=== PATIENT | female | born 1980 | race Two or more races ===

== ENCOUNTER 2019-07-11 14:20 | Emergency (ER) | payer OTHER ==
[~2019-07-11] VITALS: Ht 162.6 cm; Wt 100.0 kg
[~2019-07-11 14:20] MED LIST: NAPR-682 PO; OXYC15TA PO; OXYC1TAB15 PO; TRAM50TA PO
[2019-07-11] MEDS ORDERED: ONDANSETRON PF 4 MG/2 ML VIAL. IVP ONE (16:00)
[2019-07-11] MEDS ORDERED: fentaNYL PF VIAL 100 MCG/2 ML VIAL IVP ONE (16:00)
[2019-07-11] MEDS ORDERED: IV NORMAL SALINE 1000ML BAG 1,000 ML IV ONE (16:00)
--- NOTE | 2019-07-11 16:02 | PHYS DOC ---
Past Medical History Past Medical History: P.U.D., Other Additional Past Medical Histor: CROHNS,SLIPPED DISC Past Surgical History: Cholecystectomy, Other Additional Past Surgical Histo: liver biopsy Smoking Status: Never Smoker Alcohol Use: Occasionally Drug Use: None Adult General Chief Complaint Chief Complaint: ABDOMINAL PAIN HPI HPI Patient is a 38 year old female with past medical history significant for Crohn's disease but has been off medications for approximately 1 year; presents secondary to abdominal pain 2 days that is sharp and crampy in nature with associated vomiting, nausea, diarrhea. No reported fever or chills. Similar to Crohn's presentation in the past. Has tried Aleve without relief. Pain is Review of Systems Review of Systems All other ROS is negative unless otherwise stated in HPI Current Medications Current Medications Current Medications Medications (Trade) Dose Ordered Sig/Jeff Start Time Stop Time Status Last Admin Dose Admin Fentanyl Citrate (Fentanyl 2ml Vial) 50 mcg 1X ONCE 07/11/19 16:00 07/11/19 16:04 DC 07/11/19 16:26 50 MCG Ondansetron HCl (Zofran) 4 mg 1X ONCE 07/11/19 16:00 07/11/19 16:04 DC 07/11/19 16:24 4 MG Sodium Chloride 1,000 ml @ 1,000 mls/hr 1X ONCE 07/11/19 16:00 07/11/19 16:59 07/11/19 16:22 1,000 MLS/HR Allergies Allergies Allergies Coded Allergies Type Severity Reaction Last Updated Verified No Known Drug Allergies 01/28/16 No Physical Exam Physical Exam See above Constitutional: Well developed, well nourished, no acute distress, non-toxic appearance. [] HENT: Normocephalic, atraumatic, bilateral external ears normal, oropharynx moist, no oral exudates, nose normal. [] Eyes: PERRLA, EOMI, conjunctiva normal, no discharge. [] Neck: Normal range of motion, no tenderness, supple, no stridor. [] Cardiovascular:Heart rate regular rhythm, no murmur [] Lungs & Thorax: Bilateral breath sounds clear to auscultation [] Abdomen: Bowel sounds normal, soft, mild TTP diffusely, no masses, no pulsatile masses. [] Skin: Warm, dry, no erythema, no rash. [] Back: No tenderness, no CVA tenderness. [] Extremities: No tenderness, no cyanosis, no clubbing, ROM intact, no edema. [] Neurologic: Alert and oriented X 3, normal motor function, normal sensory function, no focal deficits noted. [] Psychologic: Affect normal, judgement normal, mood normal. [] Current Patient Data Vital Signs Vital Signs Date Time Temp Pulse Resp B/P (MAP) Pulse Ox O2 Delivery O2 Flow Rate FiO2 07/11/19 16:26 16 96 Room Air 07/11/19 16:21 97.6 73 131/63 (85) 97.6 Lab Values Laboratory Tests Test 07/11/19 16:06 White Blood Count 8.7 x10^3/uL (4.0-11.0) Red Blood Count 4.14 x10^6/uL (3.50-5.40) Hemoglobin 12.6 g/dL (12.0-15.5) Hematocrit 37.8 % (36.0-47.0) Mean Corpuscular Volume 92 fL (79-100) Mean Corpuscular Hemoglobin 31 pg (25-35) Mean Corpuscular Hemoglobin Concent 33 g/dL (31-37) Red Cell Distribution Width 13.9 % (11.5-14.5) Platelet Count 234 x10^3/uL (140-400) Neutrophils (%) (Auto) 65 % (31-73) Lymphocytes (%) (Auto) 25 % (24-48) Monocytes (%) (Auto) 6 % (0-9) Eosinophils (%) (Auto) 3 % (0-3) Basophils (%) (Auto) 1 % (0-3) Neutrophils # (Auto) 5.7 x10^3/uL (1.8-7.7) Lymphocytes # (Auto) 2.2 x10^3/uL (1.0-4.8) Monocytes # (Auto) 0.6 x10^3/uL (0.0-1.1) Eosinophils # (Auto) 0.3 x10^3/uL (0.0-0.7) Basophils # (Auto) 0.0 x10^3/uL (0.0-0.2) Sodium Level 139 mmol/L (136-145) Potassium Level 3.9 mmol/L (3.5-5.1) Chloride Level 105 mmol/L (98-107) Carbon Dioxide Level 25 mmol/L (21-32) Anion Gap 9 (6-14) Blood Urea Nitrogen 11 mg/dL (7-20) Creatinine 0.6 mg/dL (0.6-1.0) Estimated GFR (Cockcroft-Gault) 111.3 BUN/Creatinine Ratio 18 (6-20) Glucose Level 144 mg/dL (70-99) H Calcium Level 9.2 mg/dL (8.5-10.1) Total Bilirubin 0.3 mg/dL (0.2-1.0) Aspartate Amino Transferase (AST) 25 U/L (15-37) Alanine Aminotransferase (ALT) 57 U/L (14-59) Alkaline Phosphatase 114 U/L (46-116) Total Protein 6.6 g/dL (6.4-8.2) Albumin 3.2 g/dL (3.4-5.0) L Albumin/Globulin Ratio 0.9 (1.0-1.7) L Lipase 99 U/L (73-393) Laboratory Tests 07/11/19 16:06 Laboratory Tests 07/11/19 16:06 EKG EKG [] Radiology/Procedures Radiology/Procedures [] Course & Med Decision Making Course & Med Decision Making Pertinent Labs and Imaging studies reviewed. (See chart for details) Patient with history of Crohn's seen for abdominal pain similar to previous Crohn's flare. Will give IV fluids and check labs. 1636: Patient's workup was unremarkable. Her symptoms have improved. We'll discharge home with a prescription for Zofran and Medrol Dosepak. Dragon Disclaimer Dragon Disclaimer This electronic medical record was generated, in whole or in part, using a voice recognition dictation system. Departure Departure Impression: Primary Impression: Nonspecific abdominal pain Additional Impressions: Nausea vomiting and diarrhea History of Crohn's disease Disposition: HOME, SELF-CARE Condition: STABLE Referrals: NO PCP (PCP) Patient Instructions: Abdominal Pain Additional Instructions: Please follow-up with your doctor in 5-7 days if your symptoms have not improved. Scripts Dicyclomine Hcl (DICYCLOMINE HCL) 20 Mg Tablet 1 TAB PO TID PRN for abdominal pain, #20 TAB 1 Refill Prov: CHRISTIAN WATT DO 07/11/19 Ondansetron Hcl (ZOFRAN) 4 Mg Tablet 1 TAB PO PRN Q6-8HRS for nausea, #12 TAB Prov: CHRISTIAN WATT DO 07/11/19 Methylprednisolone (MEDROL) 4 Mg Tab.ds.pk 1 PKG PO UD, #1 PKG Prov: CHRISTIAN WATT DO 07/11/19 Problem Qualifiers CHRISTIAN WATT DO Jul 11, 2019 16:02
[2019-07-11 16:17] LABS: BASO % 1 % (0-3); EOS # 0.3 x10^3/uL (0.0-0.7); EOS % 3 % (0-3); HEMATOCRIT 37.8 % (36.0-47.0); HEMOGLOBIN 12.6 g/dL (12.0-15.5); LYMPH # 2.2 x10^3/uL (1.0-4.8); LYMPH % 25 % (24-48); MEAN CORPUSCULAR HEMOGLOBIN 31 pg (25-35); MEAN CORPUSCULAR HGB CONC 33 g/dL (31-37); MEAN CORPUSCULAR VOLUME 92 fL (79-100); MONO # 0.6 x10^3/uL (0.0-1.1); MONO % 6 % (0-9); NEUT # 5.7 x10^3/uL (1.8-7.7); NEUT % 65 % (31-73); PLATELET COUNT 234 x10^3/uL (140-400); RED BLOOD COUNT 4.14 x10^6/uL (3.50-5.40); RED CELL DISTRIBUTION WIDTH 13.9 % (11.5-14.5); WHITE BLOOD COUNT 8.7 x10^3/uL (4.0-11.0)
[2019-07-11 16:28] LABS: CALCIUM 9.2 mg/dL (8.5-10.1); CREATININE 0.6 mg/dL (0.6-1.0); GFR 111.3; POTASSIUM 3.9 mmol/L (3.5-5.1)
[2019-07-11 16:33] LABS: ALBUMIN 3.2 g/dL (3.4-5.0); ALBUMIN/GLOBULIN RATIO 0.9 (1.0-1.7); TOTAL BILIRUBIN 0.3 mg/dL (0.2-1.0); TOTAL PROTEIN 6.6 g/dL (6.4-8.2)
[2019-07-11] MEDS ORDERED: DICY20TA3 PO (16:39)
[2019-07-11] MEDS ORDERED: ONDA4TAB7 PO (16:39)
[2019-07-11] MEDS ORDERED: METH4TAB2 PO (16:39)
[2019-07-11 16:57] VITALS: BP 110/57
== END 2019-07-11 17:17 | disposition home or self-care (01) ==
LOC: ER 14:20
DX: R10.9 Unspecified abdominal pain (principal); R11.2 Nausea with vomiting, unspecified; R19.7 Diarrhea, unspecified; K50.90 Crohn's disease, unspecified, without complications; Z90.49 Acquired absence of other specified parts of digestive tract; Z98.890 Other specified postprocedural states
CPT/HCPCS: 36415; 80053; 83690; 85025; 96361; 96374; 96375; 99284; J2405; J3010; J7030

== ENCOUNTER 2019-11-10 11:31 | Emergency (ER) | payer OTHER ==
[~2019-11-10] VITALS: Ht 157.5 cm; Wt 104.5 kg
[~2019-11-10 11:31] MED LIST changes: +DICY20TA3 PO; +METH4TAB2 PO; +ONDA4TAB7 PO; -OXYC15TA PO; +OXYC15TA3 PO
[2019-11-10] MEDS ORDERED: IV NORMAL SALINE 1000ML BAG 1,000 ML IV ONE (12:30)
[2019-11-10 12:51] LABS: BASO % 1 % (0-3); EOS # 0.2 x10^3/uL (0.0-0.7); EOS % 3 % (0-3); HEMATOCRIT 34.9 % (36.0-47.0); LYMPH # 2.4 x10^3/uL (1.0-4.8); LYMPH % 33 % (24-48); MEAN CORPUSCULAR HEMOGLOBIN 31 pg (25-35); MEAN CORPUSCULAR HGB CONC 34 g/dL (31-37); MEAN CORPUSCULAR VOLUME 89 fL (79-100); MONO # 0.5 x10^3/uL (0.0-1.1); MONO % 6 % (0-9); NEUT # 4.3 x10^3/uL (1.8-7.7); NEUT % 58 % (31-73); PLATELET COUNT 262 x10^3/uL (140-400); RED BLOOD COUNT 3.93 x10^6/uL (3.50-5.40); RED CELL DISTRIBUTION WIDTH 13.8 % (11.5-14.5); WHITE BLOOD COUNT 7.3 x10^3/uL (4.0-11.0)
[2019-11-10 13:00] LABS: CALCIUM 9.7 mg/dL (8.5-10.1); CREATININE 0.7 mg/dL (0.6-1.0); GFR 92.7; POTASSIUM 3.8 mmol/L (3.5-5.1)
--- NOTE | 2019-11-10 13:07 | PHYS DOC ---
Past Medical History Past Medical History: P.U.D., Other Additional Past Medical Histor: CROHNS,SLIPPED DISC, ULCERS (MAGGIE DOMINGUEZ APRN) Past Surgical History: Cholecystectomy, Other Additional Past Surgical Histo: liver biopsy (MAGGIE DOMINGUEZ APRN) Smoking Status: Never Smoker Alcohol Use: Occasionally Drug Use: None (MAGGIE DOMINGUEZ APRN) General Adult EDM: Chief Complaint: DIARRHEA HPI: HPI: Patient is a 39 year old female who presents to the emergency department with complaints of not feeling well for the last 3 days. Patient states that she began having diarrhea yesterday. She reports that she has had at least 10 loose bowel movements in the last 24 hours. Patient states that she has a history of Crohn's but does not take any medications for her disease. Patient denies any blood in her stool, constipation, rectal pain, fever, dysuria, hematuria, increased urinary frequency, cough, shortness of breath, chest pain, palpitations, dizziness, or headache. She states she does have some lower abdominal cramping but denies any abdominal tenderness. She currently rates her discomfort a 3 out of 10 on the pain scale she denies any alleviating or exacerbating factors. (MAGGIE DOMINGUEZ APRN) Review of Systems: Review of Systems: Constitutional: Denies fever or chills, reports fatigue. [] Eyes: Denies change in visual acuity. [] HENT: Denies nasal congestion or sore throat. [] Respiratory: Denies cough or shortness of breath. [] Cardiovascular: Denies chest pain or edema. [] GI: See HPI : Denies dysuria. [] Musculoskeletal: Denies back pain or joint pain. [] Integument: Denies rash. [] Neurologic: Denies headache, focal weakness or sensory changes. [] Endocrine: Denies polyuria or polydipsia. [] Lymphatic: Denies swollen glands. [] Psychiatric: Denies depression or anxiety. [] (MAGGIE DOMINGUEZ APRN) Heart Score: Risk Factors: Risk Factors: DM, Current or recent (<one month) smoker, HTN, HLP, family history of CAD, obesity. Risk Scores: Score 0 - 3: 2.5% MACE over next 6 weeks - Discharge Home Score 4 - 6: 20.3% MACE over next 6 weeks - Admit for Clinical Observation Score 7 - 10: 72.7% MACE over next 6 weeks - Early Invasive Strategies (MAGGIE DOMINGUEZ APRN) Current Medications: Current Medications Medications (Trade) Dose Ordered Sig/Jeff Start Time Stop Time Status Last Admin Dose Admin Sodium Chloride 1,000 ml @ 1,000 mls/hr 1X ONCE 11/10/19 12:30 11/10/19 13:29 11/10/19 12:41 1,000 MLS/HR (MAGGIE DOMINGUEZ APRN) Allergies: Allergies: Allergies Coded Allergies Type Severity Reaction Last Updated Verified No Known Drug Allergies 01/28/16 No (MAGGIE DOMINGUEZ APRN) Physical Exam: PE: Constitutional: Well developed, well nourished, no acute distress, non-toxic appearance, obese. [] HENT: Normocephalic, atraumatic, bilateral external ears normal, nose normal. [] Eyes: PERRLA, EOMI, conjunctiva normal, no discharge. [] Neck: Normal range of motion, no stridor. [] Cardiovascular:Heart rate regular rhythm Lungs & Thorax: Respirations even and unlabored, no retractions, no respiratory distress Abdomen: soft, no tenderness, bowel sounds active x4 quadrants Skin: Warm, dry, no erythema, no rash. [] Extremities: No cyanosis, ROM intact, no edema. [] Neurologic: Alert and oriented X 3, no focal deficits noted. [] Psychologic: Affect normal, judgement normal, mood normal. [] (MAGGIE DOMINGUEZ APRN) Current Patient Data: Labs: Laboratory Tests Test 11/10/19 11:39 White Blood Count 7.3 x10^3/uL (4.0-11.0) Red Blood Count 3.93 x10^6/uL (3.50-5.40) Hemoglobin 12.0 g/dL (12.0-15.5) Hematocrit 34.9 % (36.0-47.0) L Mean Corpuscular Volume 89 fL (79-100) Mean Corpuscular Hemoglobin 31 pg (25-35) Mean Corpuscular Hemoglobin Concent 34 g/dL (31-37) Red Cell Distribution Width 13.8 % (11.5-14.5) Platelet Count 262 x10^3/uL (140-400) Neutrophils (%) (Auto) 58 % (31-73) Lymphocytes (%) (Auto) 33 % (24-48) Monocytes (%) (Auto) 6 % (0-9) Eosinophils (%) (Auto) 3 % (0-3) Basophils (%) (Auto) 1 % (0-3) Neutrophils # (Auto) 4.3 x10^3/uL (1.8-7.7) Lymphocytes # (Auto) 2.4 x10^3/uL (1.0-4.8) Monocytes # (Auto) 0.5 x10^3/uL (0.0-1.1) Eosinophils # (Auto) 0.2 x10^3/uL (0.0-0.7) Basophils # (Auto) 0.0 x10^3/uL (0.0-0.2) Sodium Level 140 mmol/L (136-145) Potassium Level 3.8 mmol/L (3.5-5.1) Chloride Level 106 mmol/L (98-107) Carbon Dioxide Level 24 mmol/L (21-32) Anion Gap 10 (6-14) Blood Urea Nitrogen 14 mg/dL (7-20) Creatinine 0.7 mg/dL (0.6-1.0) Estimated GFR (Cockcroft-Gault) 92.7 BUN/Creatinine Ratio 20 (6-20) Glucose Level 143 mg/dL (70-99) H Calcium Level 9.7 mg/dL (8.5-10.1) Magnesium Level Pending Total Bilirubin Pending Aspartate Amino Transferase (AST) Pending Alanine Aminotransferase (ALT) Pending Alkaline Phosphatase Pending Total Protein Pending Albumin Pending Albumin/Globulin Ratio Pending Laboratory Tests 11/10/19 11:39 Laboratory Tests 11/10/19 11:39 Vital Signs: Vital Signs Date Time Temp Pulse Resp B/P (MAP) Pulse Ox O2 Delivery O2 Flow Rate FiO2 11/10/19 11:40 98.1 57 16 124/62 (82) 100 Room Air 98.1 (MAGGIE DOMINGUEZ APRN) EKG: EKG: [] (MAGGIE DOMINGUEZ APRN) Radiology/Procedures: Radiology/Procedures: [] (MAGGIE DOMINGUEZ APRN) Course & Med Decision Making: Course & Med Decision Making Pertinent Labs and Imaging studies reviewed. (See chart for details) 39-year-old female presented to the emergency department with complaints of fatigue for the last 3 days and diarrhea for 2 days. Reported a history of Crohn's but does not take medication for this disease. We will check a CBC, and CMP. Ordered 1 L of normal saline for the patient, she denies any nausea or pain at this time. We will continue to monitor. CBC and CMP were unremarkable, patient was unable to give a urine specimen in the emergency department therefore the UA was canceled. She reported feeling better after medications. Prescription written for prednisone 50 mg p.o. daily x5 days. Follow-up with primary care doctor in 1 to 2 days. Return to the ER symptoms worsen, recommend increase clear fluids for 24 hours then advance to bland foods. Patient verbalized an understanding of home care, medications, follow-up, and return to ED instructions and was in agreement with the plan of care. [] (MAGGIE DOMINGUEZ APRN) Dragon Disclaimer: Dragon Disclaimer: This electronic medical record was generated, in whole or in part, using a voice recognition dictation system. (MAGGIE DOMINGUEZ APRN) Departure Departure Impression: Primary Impression: Diarrhea Qualified Codes: R19.7 - Diarrhea, unspecified Additional Impression: Acute Crohn's disease without complication Disposition: 01 HOME, SELF-CARE Condition: STABLE Referrals: NO PCP (PCP) Patient Instructions: Crohn's Disease Additional Instructions: Fill prescriptions and use them as directed. Recommend clear fluids for the next 24 hours. Then you may advance to bland foods such as bananas, rice, applesauce, and dry toast. Follow-up with your primary care doctor in the next 1-2 days. Return to the emergency room if your symptoms worsen. Scripts Prednisone (PREDNISONE) 50 Mg Tablet 1 TAB PO DAILY for 5 Days, #5 TAB 0 Refills Prov: MAGGIE DOMINGUEZ APRN 11/10/19 Justicifation of Admission Dx: Justifications for Admission: Justification of Admission Dx: N/A (MAGGIE DOMINGUEZ APRN) Attending Signature Attending Signature I have reviewed the [facility]'s note and plan of care. I was available for consultation as needed during the patient's visit in the emergency department. I agree with the clinical impression, plan, and disposition. (DAVIAN ORNELAS DO) MAGGIE DOMINGUEZ APRN Nov 10, 2019 13:07 DAVIAN ORNELAS DO Nov 10, 2019 15:38
[2019-11-10 13:18] LABS: ALBUMIN 3.1 g/dL (3.4-5.0); ALBUMIN/GLOBULIN RATIO 0.8 (1.0-1.7); MAGNESIUM 1.6 mg/dL (1.8-2.4); TOTAL BILIRUBIN 0.2 mg/dL (0.2-1.0); TOTAL PROTEIN 6.8 g/dL (6.4-8.2)
[2019-11-10] MEDS ORDERED: PRED50TA PO (14:19)
[2019-11-10 14:40] VITALS: BP 116/57
== END 2019-11-10 15:08 | disposition home or self-care (01) ==
LOC: ER 11:31
DX: K50.90 Crohn's disease, unspecified, without complications (principal); R19.7 Diarrhea, unspecified; R10.30 Lower abdominal pain, unspecified; Z90.49 Acquired absence of other specified parts of digestive tract; Z98.890 Other specified postprocedural states
CPT/HCPCS: 36415; 80053; 83735; 85025; 96360; 96361; 99285; J7030

== ENCOUNTER 2020-01-08 16:08 | Emergency (ER) | payer OTHER ==
[~2020-01-08] VITALS: Ht 160 cm; Wt 125.0 kg
[~2020-01-08 16:08] MED LIST changes: +PRED50TA PO
[2020-01-08 16:43] VITALS: BP 149/78
[2020-01-08] MEDS ORDERED: CLIN300C8 PO (16:59)
--- NOTE | 2020-01-08 17:00 | PHYS DOC ---
Past Medical History Past Medical History: P.U.D., Other Additional Past Medical Histor: CROHNS,SLIPPED DISC, ULCERS Past Surgical History: Cholecystectomy, Other Additional Past Surgical Histo: liver biopsy Smoking Status: Never Smoker Alcohol Use: Occasionally Drug Use: None General Adult EDM: Chief Complaint: FACE PROBLEM HPI: HPI: Patient is a 39 year old female who presents with a 1 day history of left-sided facial pain and swelling. Patient woke up this morning and noticed swelling to the left maxilla. Patient says it is mildly painful it is worse with palpation. Patient denies any fever or inciting events. Patient denies any focal neurological weakness or numbness. Pain is radiating to the head causing a mild headache. Review of Systems: Review of Systems: Constitutional: Denies fever or chills. [] Eyes: Denies change in visual acuity. [] HENT: Complains of left facial swelling and pain Respiratory: Denies cough or shortness of breath. [] Cardiovascular: Denies chest pain or edema. [] GI: Denies abdominal pain, nausea, vomiting, bloody stools or diarrhea. [] : Denies dysuria. [] Musculoskeletal: Denies back pain or joint pain. [] Integument: Denies rash. [] Neurologic: Denies headache, focal weakness or sensory changes. [] Endocrine: Denies polyuria or polydipsia. [] Lymphatic: Denies swollen glands. [] Psychiatric: Denies depression or anxiety. [] Heart Score: Risk Factors: Risk Factors: DM, Current or recent (<one month) smoker, HTN, HLP, family history of CAD, obesity. Risk Scores: Score 0 - 3: 2.5% MACE over next 6 weeks - Discharge Home Score 4 - 6: 20.3% MACE over next 6 weeks - Admit for Clinical Observation Score 7 - 10: 72.7% MACE over next 6 weeks - Early Invasive Strategies Allergies: Allergies: Allergies Coded Allergies Type Severity Reaction Last Updated Verified No Known Drug Allergies 01/28/16 No Physical Exam: PE: Constitutional: Well developed, well nourished, no acute distress, non-toxic appearance. [] HENT: Mild swelling to the left maxilla atraumatic, bilateral external ears normal, oropharynx moist, no oral exudates, nose normal. [] Eyes: PERRLA, EOMI, conjunctiva normal, no discharge. [] No pain with extraocular movement. Neck: Normal range of motion, no tenderness, supple, no stridor. [] Cardiovascular:Heart rate regular rhythm, peripheral pulses intact Lungs & Thorax: Bilateral breath sounds clear no respiratory distress Abdomen: soft, no tenderness, no masses, no pulsatile masses. [] Skin: Warm, dry, no erythema, no rash. [] Back: No tenderness, no CVA tenderness. [] Extremities: No tenderness, no cyanosis, no clubbing, ROM intact, no edema. [] Neurologic: Alert and oriented X 3, normal motor function, normal sensory function, no focal deficits noted. [] Psychologic: Affect normal, judgement normal, mood normal. [] EKG: EKG: [] Radiology/Procedures: Radiology/Procedures: [] Course & Med Decision Making: Course & Med Decision Making Pertinent Labs and Imaging studies reviewed. (See chart for details) [] 39-year-old female presents with left-sided facial swelling. Patient has good motor function of the face. Doubt Villanueva's palsy. There is no drainable abscess. This may indicate paroditis, allergic reaction or cellulitis. Patient has no evidence of preseptal or orbital cellulitis. Return precautions given. Will place patient on antihistamines and antibiotics. Skin is intact no evid ence of shingles. Alphonso Disclaimer: Alphonso Disclaimer: This electronic medical record was generated, in whole or in part, using a voice recognition dictation system. Departure Departure Impression: Primary Impression: Facial swelling Disposition: 01 HOME, SELF-CARE Condition: STABLE Referrals: NO PCP (PCP) pcp 2-3 days Patient Instructions: Cellulitis Additional Instructions: EMERGENCY DEPARTMENT GENERAL DISCHARGE INSTRUCTIONS THANK YOU for coming to [facility] Emergency Department (ED) today and trusting us with your care. We trust that you had a positive experience in our Emergency Department. If you wish to speak to the department Management you can contact the agriculture department chair at . YOUR FOLLOW UP INSTRUCTIONS ARE FOLLOWS: Do you have a private doctor? If you do not have a private doctor, please ask for a resource list of physicians or clinics that may be able to assist you with follow up care. The Emergency Physician has interpreted your x-rays. The X-ray specialist will also review them. If there is a change in the findings you will be notified in 48 hours when at all possible. A lab test or lab culture may have been done, your results will be reviewed and you will be notified if you need a change in treatment. ADDITIONAL INSTRUCTIONS AND INFORMATION Your care today has been supervised by a physician who is specially trained in emergency care. Many problems require more than one evaluation for a complete diagnosis and treatment. We recommend that you schedule your follow up appointment as recommended to ensure complete treatment of your illness or injury. If you are unable to obtain follow up care and continue to have a problem, or if your condition worsens we recommend that you return to the ED. We are not able to safely determine your condition over the phone nor are we able to give sound medical advice over the phone. For these safety reasons, if you call for medical advice we will ask you to come to the ED for further evaluation If you have any questions regarding these discharge instructions please call the ED at . SAFETY INFORMATION In the interest of safety, wellness, and injury prevention; we encourage you to wear your seatbelt, if you smoke; quit smoking, and we encourage your family to use protective helmet for bicycling and other sporting events that present an increased risk for head injury. IF YOUR SYMPTOMS WORSEN OR NEW SYMPTOMS DEVELOP, OR YOU HAVE CONCERNS ABOUT YOUR CONDITION; OR IF YOUR CONDITION WORSENS WHILE YOU ARE WAITING FOR YOUR FOLLOW UP APPOINTMENT; EITHER CONTACT YOUR PRIMARY CARE DOCTOR, THE PHYSICIAN WHOSE NAME AND NUMBER YOU WERE GIVEN, OR RETURN TO THE ED IMMEDIATELY. Scripts Clindamycin Hcl (CLINDAMYCIN HCL) 300 Mg Capsule 1 CAP PO QID, #40 CAP Prov: BRYANT HAQUE MD 01/08/20 Justicifation of Admission Dx: Justifications for Admission: Justification of Admission Dx: N/A BRYANT HAQUE MD Jan 08, 2020 17:00
== END 2020-01-08 17:15 | disposition home or self-care (01) ==
LOC: ER 16:08
DX: R22.0 Localized swelling, mass and lump, head (principal); R51 Headache; Z90.49 Acquired absence of other specified parts of digestive tract; Z98.890 Other specified postprocedural states
CPT/HCPCS: 99283

== ENCOUNTER 2020-06-14 13:01 | Emergency (ER) | payer OTHER ==
[~2020-06-14] VITALS: Ht 162.6 cm; Wt 90.9 kg
[~2020-06-14 13:01] MED LIST changes: +CLIN300C9 PO
[2020-06-14] MEDS ORDERED: IV NORMAL SALINE 1000ML BAG 1,000 ML IV SCH (14:00)
--- NOTE | 2020-06-14 14:03 | PHYS DOC ---
Past Medical History Past Medical History: Other Additional Past Medical Histor: CROHNS, ULCERS Past Surgical History: Cholecystectomy, Other Additional Past Surgical Histo: liver biopsy Smoking Status: Former Smoker Alcohol Use: Occasionally Drug Use: None General Adult EDM: Chief Complaint: DEHYDRATION HPI: HPI: Patient is a 39 year old female who presents with headache that she rates a 5 out of 10 that is generalized and diarrhea for the last 2 days. Patient states she has not had diarrhea today but she has not ate or drink much today. She states that she would have cramping and then have some diarrhea. She states yesterday she had about 6 or 7 stools. She denies any blood in her diarrhea. She does have Crohn's disease and is taking her medication as prescribed. Patient states she sees Dr. Morales. Patient does not remember the name of the medication that she takes. Patient states that she was sent home from work yesterday due to her headache and diarrhea. She states that she needs a Covid test before returning. Patient has a history of Crohn's disease, cholecystectomy, ulcer. Patient denies fever, chest pain, cough, shortness of breath, vision changes, focal weakness, numbness or tingling, urinary symptoms, abdominal pain at this time, nausea, vomiting. Review of Systems: Review of Systems: Constitutional: Denies fever or chills. [] Eyes: Denies change in visual acuity. [] HENT: Denies nasal congestion or sore throat. [] Respiratory: Denies cough or shortness of breath. [] Cardiovascular: Denies chest pain or edema. [] GI: + abdominal cramping pain, denies nausea, vomiting, bloody stools. +diarr hea. [] : Denies dysuria. [] Musculoskeletal: Denies back pain or joint pain. [] Integument: Denies rash. [] Neurologic: +headache, denies focal weakness or sensory changes. [] Endocrine: Denies polyuria or polydipsia. [] Lymphatic: Denies swollen glands. [] Psychiatric: Denies depression or anxiety. [] Heart Score: Risk Factors: Risk Factors: DM, Current or recent (<one month) smoker, HTN, HLP, family history of CAD, obesity. Risk Scores: Score 0 - 3: 2.5% MACE over next 6 weeks - Discharge Home Score 4 - 6: 20.3% MACE over next 6 weeks - Admit for Clinical Observation Score 7 - 10: 72.7% MACE over next 6 weeks - Early Invasive Strategies Current Medications: Current Medications Medications (Trade) Dose Ordered Sig/Jeff Start Time Stop Time Status Last Admin Dose Admin Acetaminophen (Tylenol) 650 mg 1X ONCE 06/14/20 14:15 06/14/20 14:16 UNV Sodium Chloride 1,000 ml @ 1,000 mls/hr Q1H 06/14/20 14:00 06/14/20 14:59 06/14/20 13:59 1,000 MLS/HR Allergies: Allergies: Allergies Coded Allergies Type Severity Reaction Last Updated Verified No Known Drug Allergies 01/28/16 No Physical Exam: PE: Constitutional: Well developed, well nourished, no acute distress, non-toxic appearance. [] HENT: Normocephalic, atraumatic, bilateral external ears normal, oropharynx moist, no oral exudates, nose normal. [] Eyes: PERRLA, EOMI, conjunctiva normal, no discharge. [] Neck: Normal range of motion, no tenderness, supple, no stridor. [] Cardiovascular:Heart rate regular rhythm, no murmur [] Lungs & Thorax: Bilateral breath sounds clear to auscultation [] Abdomen: Bowel sounds normal, soft, no tenderness, no masses, no pulsatile masses. [] Skin: Warm, dry, no erythema, no rash. [] Back: No tenderness, no CVA tenderness. [] Extremities: No tenderness, no cyanosis, no clubbing, ROM intact, no edema. [] Neurologic: Alert and oriented X 3, normal motor function, normal sensory function, no focal deficits noted. [] Psychologic: Affect normal, judgement normal, mood normal. Normal physical exam [] Current Patient Data: Labs: Laboratory Tests Test 06/14/20 13:33 POC Urine HCG, Qualitative Hcg negative (Negative) Vital Signs: Vital Signs Date Time Temp Pulse Resp B/P (MAP) Pulse Ox O2 Delivery O2 Flow Rate FiO2 06/14/20 13:25 98.2 81 16 127/59 (81) 96 Room Air 98.2 EKG: EKG: [] Radiology/Procedures: Radiology/Procedures: [] Impression: [facility] [address] [place] [address] IMAGING REPORT Signed PATIENT: KERI CARIAS ACCOUNT: [id number] : 1980 LOCATION: ER AGE: 39 SEX: F EXAM STATUS: REG ER ORD. PHYSICIAN: MARK HAIRSTON APRN REASON: diarrhea, abd pain, hx chrons PROCEDURE: CT ABD PELV W/ IV CONTRST ONLY Examination: CT of the abdomen pelvis with IV contrast HISTORY: History of diarrhea, abdominal pain COMPARISON: 02/26/2015 TECHNIQUE: Axial CT images of the abdomen pelvis were performed with IV contrast: Sagittal reformats are performed Exposure: One or more of the following individualized dose reduction techniques were utilized for this examination: 1. Automated exposure control 2. Adjustment of the mA and/or kV according to patient size 3. Use of iterative reconstruction technique FINDINGS: The bibasilar lungs are clear. No evidence of free air identified in the abdomen. Moderate decreased attenuation noted in the liver likely hepatic steatosis. Hepatomegaly. The spleen, adrenals grossly appears unremarkable Cholecystectomy changes identified. The stomach is mildly distended. The visualized pancreas grossly appears unremarkable The small bowel is nondilated. Mild fat stranding identified about the small bowel loops in the left mid abdomen. The visualized appendix grossly appears unremarkable. Feces and gas noted in the colon Urinary bladder is mildly distended. The bilateral kidneys enhance symmetrically. Retroverted left renal vein. No evidence of destructive lesion. IMPRESSION: 1. Mild fat stranding identified about the small bowel loops in the left mid abdomen could be mild enteritis. 2. Hepatomegaly with hepatic steatosis. Electronically signed by: Demario Acuña MD (06/14/2020 3:08 PM) [id number] DICTATED and SIGNED BY: DEMARIO ACUÑA MD DATE: 06/14/20 [id number] Course & Med Decision Making: Course & Med Decision Making Pertinent Labs and Imaging studies reviewed. (See chart for details) COVID-19 CRITERIA: The patient was evaluated during the global COVID-19 pandemic, and that diagnosis was suspected/considered upon their initial presentation. Their evaluation, treatment and testing was consistent with current guidelines for patients who present with complaints or symptoms that may be related to COVID-19. See HPI. Alert and oriented x4. Ambulatory with steady gait. Abdomen is soft and nontender. PERRLA. Patient states this is not the worst headache she is ever had. Speaks in full clear sentences. Lungs are clear to auscultation all lobes. She is afebrile. Patient is tested for Covid in the ED. She is given Tylenol for her headache. CT shows enteritis. Patient also has a urinary tract infection. She was given Rocephin in the ED for the UTI. She will be sent home with Keflex and Zofran. Patient to follow-up with her primary care provider. [] Dragon Disclaimer: Dragon Disclaimer: This electronic medical record was generated, in whole or in part, using a voice recognition dictation system. COVID-19 Patient Risks: Age 65 or older: No Sign of co-morbidity: Yes Exp to person + for COVID: Yes Exp to PUI: No Travel from affected area: No Lower respiratory symptoms: No Fever: No Other: Yes (diarrhea, headache) PPE Use: Full PPE with N95 mask or PAPR: Yes Departure Departure Impression: Primary Impression: Enteritis Additional Impressions: UTI (urinary tract infection) Qualified Codes: N39.0 - Urinary tract infection, site not specified; R31.9 - Hematuria, unspecified Person under investigation for COVID-19 Disposition: 01 MT HOME SELF CARE/HOMELESS Condition: STABLE Referrals: NO PCP (PCP) BRYANT MORALES MD Patient Instructions: Diarrhea, Diet for Diarrhea, Adult, Urinary Tract Infection Additional Instructions: Follow-up with primary care provider as soon as possible. Drink plenty of fluids. Take medications as prescribed and with food. Quarantine until your Covid test comes back. You have been tested for or diagnosed with COVID-19. It is an infection caused by a new type of coronavirus. COVID-19 will cause cold-like or mild flu symptoms in most. It can cause more severe symptoms like problems breathing in some. There is no treatment for COVID-19. The body will clear the infection over time. Self-care will help to ease discomfort. Steps to Take: Self-Care Rest as needed. Healthy habits may help you feel better. Steps include: Choose healthy foods including fruits and vegetables. Drink water throughout the day. Get plenty of sleep each night. If you smoke, try to quit. It may ease breathing. Avoid alcohol. Keep Others Healthy The virus can spread to others. Droplets are released every time you sneeze or cough. The droplets can get into the mouth, nose, or eyes of people near you and lead to infection. To lower the chances of spreading COVID-19 to others: Stay at home until your doctor has said it is safe to leave. If you tested positive this will mean staying isolated until both of the following are true: At least 7 days have passed since the start of illness. You are free of fever for at least 72 hours without the use of medicine. During this time: - Avoid public areas, events, or transportation. Do not return to work or school until your doctor has said it is safe to do so. - Call ahead if you need to go to a medical center. Let them know you may have COVID-19. It will help them guide you where to go. They may also ask you to wear a facemask when you come to the office. - If you call for emergency medical services, let them know you may have COVID- 19. While at home: - Try to avoid close contact with others. Stay about 6 feet away. - If possible, spend most of your time in a separate room from others. - Use a face mask if you will be in close contact with others such as sharing a room or vehicle. - Have someone wipe down common surfaces in the home. Use household traverse rod assembler every day on areas like doorknobs, counters, or sinks. - Cough or sneeze into a tissue. Throw the tissue away right after use. If a tissue is not available, cough or sneeze into your elbow. - Wash your hands often. Wash them after sneezing or coughing. Use soap and water and wash for at least 20 seconds. Alcohol based hand kettle cleaner can be used if soap and water is not available. - Do not prepare food for others. Avoid sharing personal items like forks, spoons, or toothbrushes. - Avoid close contact with pets while you are sick. There is no evidence of the virus passing to pets. This is a safety step until more is known about this virus. Isolation can be frustrating. Social interaction can help. Keep in touch with friends and family through phone and tech options. You can still interact with others in your home, just keep a safe distance of about 6 feet. Follow-up: Your doctors office will check in with you to see if there are any changes in your health. You may be asked to keep track of symptoms to share with them. They will also let you know when you are clear to be in public again. Problems to Look Out For: Contact your doctor if your recovery is not going as you expect. Get emergency care if you have problems such as: - Trouble breathing - Nonstop chest pain or pressure - Changes in awareness, confusion, or problems waking - Lips or face have bluish color - Worsening of symptoms If you think you have an emergency, call for emergency medical services right away. As taken from [facility] [place] Health Scripts Ondansetron (ONDANSETRON ODT) 4 Mg Tab.rapdis 1 TAB PO PRN Q6-8HRS, #16 TAB Prov: MARK HAIRSTON APRN 06/14/20 Cephalexin (CEPHALEXIN) 500 Mg Capsule 1 CAP PO BID, #20 CAP Prov: MARK HAIRSTON APRN 06/14/20 MARK HAIRSTON APRN Jun 14, 2020 14:03
[2020-06-14 14:07] LABS: BASO % 1 % (0-3); EOS # 0.2 x10^3/uL (0.0-0.7); EOS % 3 % (0-3); HEMOGLOBIN 12.7 g/dL (12.0-15.5); LYMPH # 1.7 x10^3/uL (1.0-4.8); LYMPH % 28 % (24-48); MEAN CORPUSCULAR HEMOGLOBIN 30 pg (25-35); MEAN CORPUSCULAR HGB CONC 34 g/dL (31-37); MEAN CORPUSCULAR VOLUME 89 fL (79-100); MONO # 0.3 x10^3/uL (0.0-1.1); MONO % 5 % (0-9); NEUT # 3.9 x10^3/uL (1.8-7.7); NEUT % 63 % (31-73); PLATELET COUNT 258 x10^3/uL (140-400); RED BLOOD COUNT 4.18 x10^6/uL (3.50-5.40); RED CELL DISTRIBUTION WIDTH 13.1 % (11.5-14.5); WHITE BLOOD COUNT 6.2 x10^3/uL (4.0-11.0)
[2020-06-14 14:09] LABS: BILIRUBIN,URINE NEGATIVE (NEG); CLARITY,URINE CLEAR; COLOR,URINE YELLOW; NITRITE,URINE NEGATIVE (NEG); PROTEIN,URINE NEGATIVE (NEG-TRACE)
[2020-06-14 14:13] LABS: BACTERIA,URINE MODERATE /HPF (0-FEW); WBC,URINE 20-40 /HPF (0-4)
[2020-06-14 14:15] LABS: BARBITURATES NEG (NEG); BENZODIAZEPINES NEG (NEG); CANNABINOIDS NEG (NEG); COCAINE NEG (NEG); METHADONE NEG (NEG); OPIATES NEG (NEG); PHENCYCLIDINE NEG (NEG)
[2020-06-14] MEDS ORDERED: ACETAMINOPHEN 325 MG TABLET. PO ONE (14:15)
[2020-06-14 14:28] LABS: AMPHETAMINE/METHAMPHETAMINE NEG (NEG)
[2020-06-14 14:29] LABS: CREATININE 0.7 mg/dL (0.6-1.0); GFR 92.7; POTASSIUM 3.9 mmol/L (3.5-5.1)
[2020-06-14] MEDS ORDERED: cefTRIAXone IV Push 1 GM VIAL. IVP ONE (14:30)
[2020-06-14 14:35] LABS: ALBUMIN 3.2 g/dL (3.4-5.0); ALBUMIN/GLOBULIN RATIO 0.8 (1.0-1.7); TOTAL BILIRUBIN 0.5 mg/dL (0.2-1.0); TOTAL PROTEIN 7.3 g/dL (6.4-8.2)
[2020-06-14] MEDS ORDERED: IOHEXOL 300 MG/ML 100ML VIAL. IV ONE (14:45)
[2020-06-14] MEDS ORDERED: CONTRAST GIVEN. MC PRN (14:45)
[2020-06-14 15:10] LABS: PROTHROMBIN TIME PATIENT 12.9 SEC (11.7-14.0)
--- NOTE | 2020-06-14 15:10 | RAD ---
Examination: CT of the abdomen pelvis with IV contrast HISTORY: History of diarrhea, abdominal pain COMPARISON: 02/26/2015 TECHNIQUE: Axial CT images of the abdomen pelvis were performed with IV contrast: Sagittal reformats are performed Exposure: One or more of the following individualized dose reduction techniques were utilized for thi s examination: 1. Automated exposure control 2. Adjustment of the mA and/or kV according to patient size 3. Use of iterative reconstruction technique FINDINGS: The bibasilar lungs are clear. No evidence of free air identified in the abdomen. Moderate decreased attenuation noted in the liver likely hepatic steatosis. Hepatomegaly. The spleen, adrenals grossly appears unremarkable Cholecystectomy changes identified. The stomach is mildly distended. The visualized pancreas grossly appears unremarkable The small bowel is nondilated. Mild fat stranding identified about the small bowel loops in the left mid abdomen. The visualized appendix grossly appears unremarkable. Feces and gas noted in the colon Urinary bladder is mildly distended. The bilateral kidneys enhance symmetrically. Retroverted left renal vein. No evidence of destructive lesion. IMPRESSION: 1. Mild fat stranding identified about the small bowel loops in the left mid abdomen could be mild e nteritis. 2. Hepatomegaly with hepatic steatosis. Electronically signed by: Demario Acuña MD (06/14/2020 3:08 PM) [id number]
[2020-06-14] MEDS ORDERED: CEPH500C PO (15:20)
[2020-06-14] MEDS ORDERED: ONDA4TAB12 PO (15:20)
[2020-06-14 15:26] LABS: ACETAMIN < 2.0 mcg/ml (10-30); SALIC < 2.8 mg/dL (2.8-20.0)
[2020-06-14 16:08] VITALS: BP 132/76
--- NOTE | 2020-06-16 15:17 | NUR ---
IP: Informed pt of negative COVID test. Pt vu.
== END 2020-06-14 16:22 | disposition home or self-care (01) ==
LOC: ER 13:01
DX: N39.0 Urinary tract infection, site not specified (principal); Z20.822 Contact with and (suspected) exposure to COVID-19; R31.9 Hematuria, unspecified; K52.9 Noninfective gastroenteritis and colitis, unspecified; R51.9 Headache, unspecified; Z90.49 Acquired absence of other specified parts of digestive tract; Z87.891 Personal history of nicotine dependence; Z98.890 Other specified postprocedural states
CPT/HCPCS: 36415; 74177; 80053; 80307; 80329; 81001; 81025; 83690; 85025; 85610; 87086; 96361; 96374; 99285; C9803; J0696; J7030; Q9967; U0003; G0480

== ENCOUNTER 2020-07-20 17:49 | Emergency (ER) | payer OTHER ==
[~2020-07-20] VITALS: Ht 162.6 cm; Wt 90.9 kg
[~2020-07-20 17:49] MED LIST changes: +CEPH500C PO; +ONDA4TAB12 PO
[2020-07-20 18:25] LABS: BILIRUBIN,URINE NEGATIVE (NEG); CLARITY,URINE CLEAR; COLOR,URINE YELLOW; NITRITE,URINE NEGATIVE (NEG); PROTEIN,URINE NEGATIVE (NEG-TRACE); UROBILINOGEN,URINE 0.2 mg/dL (0.2 mg/dL)
[2020-07-20 18:55] LABS: BACTERIA,URINE FEW /HPF (0-FEW); RBC,URINE 0 /HPF (0-2); WBC,URINE 20-40 /HPF (0-4)
[2020-07-20 18:58] LABS: BASO % 1 % (0-3); EOS # 0.1 x10^3/uL (0.0-0.7); EOS % 1 % (0-3); HEMATOCRIT 39.9 % (36.0-47.0); HEMOGLOBIN 13.5 g/dL (12.0-15.5); LYMPH # 1.8 x10^3/uL (1.0-4.8); LYMPH % 27 % (24-48); MEAN CORPUSCULAR HEMOGLOBIN 30 pg (25-35); MEAN CORPUSCULAR HGB CONC 34 g/dL (31-37); MEAN CORPUSCULAR VOLUME 88 fL (79-100); MONO # 0.3 x10^3/uL (0.0-1.1); MONO % 5 % (0-9); NEUT # 4.2 x10^3/uL (1.8-7.7); NEUT % 65 % (31-73); PLATELET COUNT 255 x10^3/uL (140-400); RED BLOOD COUNT 4.52 x10^6/uL (3.50-5.40); RED CELL DISTRIBUTION WIDTH 13.7 % (11.5-14.5); WHITE BLOOD COUNT 6.5 x10^3/uL (4.0-11.0)
[2020-07-20] MEDS ORDERED: KETOROLAC 15 MG/ML VIAL. IVP ONE (19:00)
[2020-07-20] MEDS ORDERED: IV NORMAL SALINE 1000ML BAG 1,000 ML IV ONE ×2 (19:00→19:30)
[2020-07-20 19:11] LABS: CALCIUM 9.6 mg/dL (8.5-10.1); CREATININE 0.8 mg/dL (0.6-1.0); GFR 79.4; POTASSIUM 4.6 mmol/L (3.5-5.1)
[2020-07-20 19:14] LABS: ALBUMIN 3.6 g/dL (3.4-5.0); ALBUMIN/GLOBULIN RATIO 0.9 (1.0-1.7); MAGNESIUM 1.8 mg/dL (1.8-2.4); TOTAL BILIRUBIN 0.6 mg/dL (0.2-1.0); TOTAL PROTEIN 7.6 g/dL (6.4-8.2)
[2020-07-20 19:32] LABS: CREATINE KINASE 48 U/L (26-192)
[2020-07-20] MEDS ORDERED: INSULIN REGULAR 100 UNIT/ML 3ML VIAL. SQ ONE (19:45)
--- NOTE | 2020-07-20 19:52 | PHYS DOC ---
Past Medical History Past Medical History: Other Additional Past Medical Histor: CROHNS, ULCERS Past Surgical History: Cholecystectomy, Other Additional Past Surgical Histo: liver biopsy Smoking Status: Former Smoker Alcohol Use: Rarely Drug Use: None General Adult EDM: Chief Complaint: DIZZY/LIGHT HEADED HPI: HPI: 39-year-old female presents with report of increased urinary frequency and some lightheadedness that has been ongoing for the past week. Patient reports her mother was concerned that she might have diabetes and therefore urged patient to come present to the ER today. Reports significant family history of diabetes. Patient reports she does not follow closely with a physician. Patient also reports some associated headache and nausea. Denies any fever chills. Denies known exposure to COVID-19. Denies trauma. Denies any chest pain or abdominal pain. Denies dysuria or hematuria. Denies . Patient reports last menstrual period was 2 weeks ago. Denies known sick contacts. Review of Systems: Review of Systems: Constitutional: Denies fever or chills; reports polydipsia Eyes: Denies redness or eye pain HENT: Denies nasal congestion or sore throat Respiratory: Denies cough or shortness of breath Cardiovascular: Denies chest pain or palpitations GI: Denies abdominal pain, nausea, or vomiting : Denies dysuria or hematuria; reports polyuria Musculoskeletal: Denies back pain or joint pain Integument: Denies rash or skin lesions Neurologic: Reports headache and dizziness/lightheadedness; denies focal weakness or sensory changes Complete systems were reviewed and found to be within normal limits, except as documented in this note. Current Medications: Current Medications Medications (Trade) Dose Ordered Sig/[facility] Start Time Stop Time Status Last Admin Dose Admin Insulin Human Regular (HumuLIN R VIAL) 12 unit 1X ONCE 07/20/20 19:45 07/20/20 19:46 07/20/20 19:36 12 UNIT Ketorolac Tromethamine (Toradol 15mg Vial) 15 mg 1X ONCE 07/20/20 19:00 07/20/20 19:03 DC 07/20/20 19:03 15 MG Sodium Chloride 1,000 ml @ 1,000 mls/hr 1X ONCE 07/20/20 19:30 07/20/20 20:29 07/20/20 19:37 1,000 MLS/HR Allergies: Allergies: Allergies Coded Allergies Type Severity Reaction Last Updated Verified No Known Drug Allergies 01/28/16 No Physical Exam: PE: Constitutional: Well developed, well nourished, no acute distress, non-toxic appearance HENT: Normocephalic, atraumatic, mucous membranes tacky Eyes: PERRL, EOMI, conjunctiva normal, no discharge Neck: Normal range of motion, no tenderness, supple Lungs & Thorax: No respiratory distress, equal chest rise and fall Abdomen: Soft, no tenderness, no guarding/rebound tenderness/distention Skin: Warm, dry, no erythema, no rash Back: No tenderness, no CVA tenderness Extremities: No tenderness, ROM intact, no edema Neurologic: Alert and oriented X 3, normal motor function, normal sensory function, no focal deficits noted Psychologic: Affect normal, judgment normal Current Patient Data: Labs: Laboratory Tests Test 07/20/20 17:50 07/20/20 18:00 07/20/20 18:30 Urine Collection Type Unknown Urine Color Yellow Urine Clarity Clear Urine pH 6.0 (<5.0-8.0) Urine Specific [place] >=1.030 (1.000-1.030) Urine Protein Negative mg/dL (NEG-TRACE) Urine Glucose (UA) >=1000 mg/dL (NEG) Urine Ketones (Stick) Negative mg/dL (NEG) Urine Blood Negative (NEG) Urine Nitrite Negative (NEG) Urine Bilirubin Negative (NEG) Urine Urobilinogen Dipstick 0.2 mg/dL (0.2 mg/dL) Urine Leukocyte Esterase Negative (NEG) Urine RBC 0 /HPF (0-2) Urine WBC 20-40 /HPF (0-4) Urine Squamous Epithelial Cells Mod /LPF Urine Bacteria Few /HPF (0-FEW) POC Urine HCG, Qualitative Hcg negative (Negative) White Blood Count 6.5 x10^3/uL (4.0-11.0) Red Blood Count 4.52 x10^6/uL (3.50-5.40) Hemoglobin 13.5 g/dL (12.0-15.5) Hematocrit 39.9 % (36.0-47.0) Mean Corpuscular Volume 88 fL (79-100) Mean Corpuscular Hemoglobin 30 pg (25-35) Mean Corpuscular Hemoglobin Concent 34 g/dL (31-37) Red Cell Distribution Width 13.7 % (11.5-14.5) Platelet Count 255 x10^3/uL (140-400) Neutrophils (%) (Auto) 65 % (31-73) Lymphocytes (%) (Auto) 27 % (24-48) Monocytes (%) (Auto) 5 % (0-9) Eosinophils (%) (Auto) 1 % (0-3) Basophils (%) (Auto) 1 % (0-3) Neutrophils # (Auto) 4.2 x10^3/uL (1.8-7.7) Lymphocytes # (Auto) 1.8 x10^3/uL (1.0-4.8) Monocytes # (Auto) 0.3 x10^3/uL (0.0-1.1) Eosinophils # (Auto) 0.1 x10^3/uL (0.0-0.7) Basophils # (Auto) 0.0 x10^3/uL (0.0-0.2) Sodium Level 131 mmol/L (136-145) L Potassium Level 4.6 mmol/L (3.5-5.1) Chloride Level 96 mmol/L (98-107) L Carbon Dioxide Level 28 mmol/L (21-32) Anion Gap 7 (6-14) Blood Urea Nitrogen 10 mg/dL (7-20) Creatinine 0.8 mg/dL (0.6-1.0) Estimated GFR (Cockcroft-Gault) 79.4 BUN/Creatinine Ratio 13 (6-20) Glucose Level 395 mg/dL (70-99) H Calcium Level 9.6 mg/dL (8.5-10.1) Magnesium Level 1.8 mg/dL (1.8-2.4) Total Bilirubin 0.6 mg/dL (0.2-1.0) Aspartate Amino Transferase (AST) 186 U/L (15-37) H Alanine Aminotransferase (ALT) 263 U/L (14-59) H Alkaline Phosphatase 171 U/L (46-116) H Creatine Kinase 48 U/L (26-192) Creatine Kinase MB (Mass) < 5.0 ng/mL (0.0-3.6) H Creatine Kinase MB Relative Index % (0-4) Troponin I Quantitative < 0.017 ng/mL (0.000-0.055) Total Protein 7.6 g/dL (6.4-8.2) Albumin 3.6 g/dL (3.4-5.0) Albumin/Globulin Ratio 0.9 (1.0-1.7) L Acetone Level Neg (NEG) Laboratory Tests 07/20/20 18:30 Laboratory Tests 07/20/20 18:30 Vital Signs: Vital Signs Date Time Temp Pulse Resp B/P (MAP) Pulse Ox O2 Delivery O2 Flow Rate FiO2 07/20/20 17:50 97.2 85 18 138/80 (99) 95 Room Air 97.2 EKG: EKG: @2001 NSR at 63bpm, NO ST elevation, QRS 80ms, QT/QTc 378/390ms, small q wave in lead III Radiology/Procedures: Radiology/Procedures: [] Course & Med Decision Making: Course & Med Decision Making Pertinent Lab studies reviewed. (See chart for details) Patient presents with polyuria and polydipsia there is been ongoing for the past week. Significant family history of diabetes. Patient reports concerned that she might be diabetic. Labs obtained and posted to chart. Nonfasting glucose approximately 400. IV fluid bolusing x2 L provided. Insulin also given. Acetone negative. Patient does not appear to be an hyperglycemic hyperosmolar state or diabetic ketoacidosis. A pseudohyponatremia also noted. LFTs slightly elevated. UA appears contaminated. Given negative nitrite and leukocyte esterase will hold empiric antibiotic until urine culture result. Patient stable for discharge with outpatient follow-up with PCP. Patient advised to have PCP further evaluate for diagnosis of diabetes which is probable and for reevaluation of her elevated liver enzymes. Discussed findings and plan with patient and significant other, who acknowledge understanding and agreement. Alphonso Disclaimer: Alphonso Disclaimer: This electronic medical record was generated, in whole or in part, using a voice recognition dictation system. Departure Departure Impression: Primary Impression: Hyperglycemia Additional Impressions: Elevated LFTs Headache Qualified Codes: R51.9 - Headache, unspecified Disposition: 01 DC HOME SELF CARE/HOMELESS Condition: STABLE Referrals: NO PCP (PCP) Patient Instructions: Headache, FAQs, Hyperglycemia, [id number] Additional Instructions: Your liver enzymes were slightly elevated today. Please follow closely with your doctor for further evaluation and retesting of your liver enzymes. Add itional for a "fasting glucose" and/or hemoglobin A1C for further evaluation and diagnosis of diabetes. Scripts Butalb/Acetaminophen/Caffeine ([id number] 50-325-40) 1 Each Tablet 1 EACH PO Q6HRS PRN for HEADACHE, #14 TAB Prov: DAVIAN ORNELAS DO 07/20/20 DAVIAN ORNELAS DO Jul 20, 2020 19:52
[2020-07-20] MEDS ORDERED: BUTALB/APAP/CAFEIN 50/325/40MG TABLET. PO ONE (20:45)
[2020-07-20] MEDS ORDERED: BUTA1TAB23 PO (21:09)
[2020-07-20 21:17] VITALS: BP 103/58
--- NOTE | 2020-07-20 21:25 | EKG ---
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
== END 2020-07-20 21:20 | disposition home or self-care (01) ==
LOC: ER 17:49
DX: R73.9 Hyperglycemia, unspecified (principal); R51.9 Headache, unspecified; Z87.891 Personal history of nicotine dependence
CPT/HCPCS: 36415; 80053; 81001; 81025; 82010; 82553; 82962; 83735; 84484; 85025; 87086; 93005; 96361; 96372; 96374; 99284; J1885; J7030